=== PATIENT | female | born 1965 | race Caucasian/White ===

== ENCOUNTER 2017-05-07 12:56 | Emergency (ER) | payer BC ==
[~2017-05-07] VITALS: Ht 165.1 cm; Wt 84.1 kg
[2017-05-07 13:23] LABS: HEMATOCRIT 35.9 % (36.0-46.0); MCH 27.2 PG (29.0-34.0); MCHC 31.5 G/DL (30.0-36.0); MCV 86.3 FL (83-99); MEAN PLAT.VOLUME 10.5 uM^3 (9.5-12.4); PLATELET COUNT 244 K/uL (156-360); RBC DIS.WIDTH-CV 15.4 % (11.8-14.6); RBC DIS.WIDTH-SD 49.1 % (39-53); RED BLOOD COUNT 4.16 M/uL (3.80-5.20); WHITE BLOOD COUNT 4.7 K/uL (4.1-10.2)
[2017-05-07 13:32] LABS: CHLORIDE 105 mEq/L (99-109); SODIUM 143 mEq/L (136-147)
[2017-05-07 13:33] LABS: GLUCOSE 98 mg/dL (70-99)
[2017-05-07 13:35] LABS: ANION GAP 9 MEQ/L (2-14)
[2017-05-07 13:37] LABS: GFR ESTIMATE (CALCULATED) > 59 mL/min/
[2017-05-07 13:38] LABS: UREA NITROGEN (BUN) 8 mg/dL (9-23)
[2017-05-07 15:53] VITALS: BP 143/91
== END 2017-05-07 15:54 | disposition home or self-care (01) ==
LOC: EME 12:56
DX: F41.9 Anxiety disorder, unspecified (principal)
CPT/HCPCS: 80048; 85027; 99281; 99283